=== PATIENT | male | born 2000 | race Two or more races ===

== ENCOUNTER 2019-06-30 08:43 | Emergency (ER) | payer SELFPAY ==
[~2019-06-30] VITALS: Ht 190.5 cm; Wt 108.9 kg
[2019-06-30] MEDS ORDERED: HYDROcodone-ACET 5/325MG TAB PO ONE (12:00)
[2019-06-30 13:39] VITALS: BP 119/68
== END 2019-06-30 13:45 | disposition home or self-care (01) ==
LOC: ER 08:46
DX: S16.1XXA Strain of muscle, fascia and tendon at neck level, initial encounter (principal); S00.03XA Contusion of scalp, initial encounter; S20.219A Contusion of unspecified front wall of thorax, initial encounter; V43.52XA Car driver injured in collision with other type car in traffic accident, initial encounter; Y93.89 Activity, other specified; Y99.8 Other external cause status; Y92.410 Unspecified street and highway as the place of occurrence of the external cause
CPT/HCPCS: 70450; 71046; 72125; 82962; 93005

== ENCOUNTER 2020-06-08 13:08 | Emergency (ER) | payer SELFPAY | END 2020-06-08 13:20 | disposition left against medical advice (07) | LOC: ER 13:08 | DX: M79.661 Pain in right lower leg (principal); Z53.21 Procedure and treatment not carried out due to patient leaving prior to being seen by health care provider ==